=== PATIENT | male | born 1935 | race Hispanic/Latino ===

== ENCOUNTER 2017-02-23 06:52 | Observation (INO) | payer MEDICARE ==
[2017-02-22 09:42] LABS: BASOPHILS % 0.4 % (0.0-1.0); EOSINOPHILS # (AUTO) 0.1 (0.0-0.4); HEMATOCRIT 47.5 % (38.2-49.6); HEMOGLOBIN 16.2 g/dL (14.0-18.0); LYMPHOCYTES # (AUTO) 1.6 (1.0-3.2); LYMPHOCYTES % 21.2 % (18.0-39.1); MEAN CORPUSCULAR HGB CONC 34.1 g/dL (31-35); MEAN CORPUSCULAR VOLUME 96.7 fL (81-99); MONOCYTES # (AUTO) 0.7 (0.2-0.8); MONOCYTES % 9.2 % (4.4-11.3); NEUTROPHILS # (AUTO) 5.2 (2.1-6.9); NEUTROPHILS % 67.8 % (38.7-80.0); PLATELET COUNT 204 x10e3/uL (140-360); RED BLOOD COUNT 4.91 x10e6/uL (4.3-5.7); RED CELL DISTRIBUTION WIDTH 12.9 % (11.7-14.4)
[2017-02-22 09:56] LABS: CALCIUM 9.6 mg/dL (8.4-10.2); CREATININE, SERUM 1.2 mg/dL (0.72-1.25)
[2017-02-22 10:02] LABS: PARTIAL THROMBOPLASTIN TIME 27.8 seconds (23.8-35.5)
--- NOTE | 2017-02-22 10:05 | Diagnostic Imaging Report ---
PROCEDURE: Frontal and lateral views of the chest. COMPARISON: Chest 2 views 01/18/2009. INDICATIONS: PRE OP LEFT HEART CATH 02/23/17 FINDINGS: Lines/tubes: None. Lungs: The lungs are well inflated and clear. There is no evidence of pneumonia or pulmonary edema. Pleura: There is no pleural effusion or pneumothorax. Heart and mediastinum: The heart and the mediastinum are normal. Atherosclerotic calcifications. Bones: No acute bony abnormality. Degenerative changes of the thoracic spine. IMPRESSION: No acute radiographic abnormality. Dictated by: Elmo Hui M.D. on 02/22/2017 at 10:12 Electronically approved by: Elmo Hui M.D. on 02/22/2017 at 10:12
[2017-02-22 10:15] LABS: INR 0.88; PROTHROMBIN TIME 12.4 seconds (11.9-14.5)
[~2017-02-23] VITALS: Ht 172.7 cm; Wt 63.5 kg
[~2017-02-23 06:52] MED LIST: FENTANYL CITRATE/PF 100MCG/2 ML INJ ONE; HEPARIN SOD (PORCINE) 1000 UNIT/ML 30ML ONE; HEPARIN SOD/SOD CHLORIDE 2,000 ML ONE; IOPAMIDOL 370 MG/ML 200 ML INFUS..BTL INJ ONE; LEVOTHYROXINE50 MCG PO; LIDOCAINE HCL 2% LOCAL 20 ML VIAL ONE; LOSARTAN-HCTZ1 EACH PO; MIDAZOLAM HCL 2 MG/2 ML VIAL ONE; NITROGLYCERIN/D5W 200 MCG/ML 250 ML ONE; PRAVASTATIN SOD40 MG PO
[2017-02-23] MEDS ORDERED: SODIUM CHLORIDE 0.9% 50ML 50 ML ONE (07:41)
[2017-02-23] MEDS ORDERED: BIVALIRUDIN 250 MG/VIAL IV ONE (07:41)
[2017-02-23] MEDS ORDERED: IOPAMIDOL 370 MG/ML 200 ML INFUS..BTL INJ ONE (07:50)
[2017-02-23] MEDS ORDERED: ASPIRIN 325 MG TAB ONE (07:52)
[2017-02-23] MEDS ORDERED: CLOPIDOGREL BISULFATE 75 MG TAB ONE (07:52)
[2017-02-23] MEDS ORDERED: MIDAZOLAM HCL 2 MG/2 ML VIAL ONE (07:56)
[2017-02-23] MEDS: SODIUM CHLORIDE 0.9% 1000ML 1,000 ML IV SCH ×2 (08:10→14:01)
[2017-02-23] MEDS ORDERED: NITROGLYCERIN 0.4 MG SUBL SL PRN (08:15)
--- NOTE | 2017-02-23 08:40 | Operative Report ---
DATE OF PROCEDURE: February 23, 2017 PROCEDURE: Intracoronary stent placement in the left anterior descending artery and left heart catheterization. INDICATIONS: Angina and coronary artery disease. COMPLICATIONS: None. ANESTHESIA: Versed, fentanyl and lidocaine. TECHNIQUE: The right groin was draped and prepped in the usual fashion. The area was anesthetized with lidocaine. Standard Seldinger technique was used to place a 6-Nigerien sheath into the right femoral artery without difficulty. A JL4 catheter was used to selectively engage the left coronary artery. A 3DRC catheter was used to selectively engage the right coronary artery. A pigtail catheter was used to perform a left ventriculogram. Attention was then turned to the 70% stenosis in the midleft anterior descending artery. The patient was bolused with Angiomax and started on an Angiomax drip. Patient was given 600 mg of Plavix. An XP 4 catheter was used to selectively engage the left coronary artery. A Choice PT wire was used to cross the area of 70% stenosis. A 3 x 16 mm Synergy stent was then deployed directly at 16 atmospheres for 30 seconds. There was no residual stenosis. There were no complications. An Angio-Seal device was used to close. RESULTS: As follows: 1. Normal left main trunk. 2. There is a large left anterior descending artery, which gave rise to a medium size diagonal branch. There was a short ulcerated stenosis in the midleft anterior descending artery about 70% 3. There was a medium size AV circumflex artery, which gave rise to a bifurcating obtuse marginal branch. There was minimal disease in the circumflex system. 4. There was a large dominant right coronary artery with minimal disease. 5. There was normal left ventricular size and function with an ejection fraction of 60%. CONCLUSION: Successful stent placement in the left anterior descending artery without complications. Job#: [id number] PENG
[2017-02-23] MEDS ORDERED: CLOPIDOGREL BISULFATE 75 MG TAB PO SCH (09:00)
[2017-02-23 11:23] VITALS: BP 158/84
[2017-02-23] MEDS ORDERED: PLAVIX75 MG PO ×2 (13:15→18:03)
[2017-02-23 15:29] VITALS: BP 128/76
== END 2017-02-23 19:17 | disposition home or self-care (01) ==
LOC: CATH LAB 06:52 → IMCU 10:48
PROVIDERS: ADMIT Internal Medicine Cardiovascular Disease; ATTEND Internal Medicine Cardiovascular Disease
DX: I25.119 Atherosclerotic heart disease of native coronary artery with unspecified angina pectoris (principal); I10 Essential (primary) hypertension; E05.90 Thyrotoxicosis, unspecified without thyrotoxic crisis or storm; Z01.810 Encounter for preprocedural cardiovascular examination; Z01.812 Encounter for preprocedural laboratory examination; Z01.818 Encounter for other preprocedural examination
CPT/HCPCS: 93458; C9600; 36140; 36415; 71020; 77002; 80048; 85025; 85610; 85730; 93005; 93452; C9603; G0378; J0583; J1644; J2001; J2250; Q9967